=== PATIENT | female | born 2000 | race African-American/Black ===

== ENCOUNTER 2019-07-14 10:59 | Emergency (ER) | payer SELFPAY ==
[~2019-07-14] VITALS: Ht 152.4 cm; Wt 68.2 kg
[2019-07-14 11:24] VITALS: BP 110/62
[2019-07-14 12:06] LABS: URINE HCG NEGATIVE (NEG)
[2019-07-14 12:09] LABS: CLARITY,URINE CLOUDY (Clear); COLOR,URINE YELLOW (Yellow); GLUCOSE, URINE NEGATIVE (Neg); KETONES,URINE NEGATIVE (Neg); LEUKOCYTE ESTERASE ,URINE LARGE (Neg); NITRITES, URINE NEGATIVE (Neg); OCCULT BLOOD,URINE LARGE (Neg); PROTEIN,URINE 30 mg/dl (Neg)
[2019-07-14 12:11] LABS: UA COLLECTION TYPE CLN CATCH MIDSTREAM
[2019-07-14 12:17] LABS: WBC,URINE TNTC /HPF (0-4)
[2019-07-14 12:18] LABS: BACTERIA,URINE 2+ /HPF (Neg); MUCUS STRANDS MODERATE /LPF (Neg); SQUAMOUS EPITHELIAL CELL,UR MANY /LPF (FEW)
--- NOTE | 2019-07-14 12:23 | NUR ---
educated pt on how to do a clean catch for culture
[2019-07-14] MEDS ORDERED: CefTRIAXone 250MG IM Kit w/LIDOcaine IM ONE (12:45)
[2019-07-14] MEDS ORDERED: azithromycin 250mg tablet PO ONE (12:45)
[2019-07-14 12:47] LABS: CLARITY,URINE CLOUDY (Clear); COLOR,URINE YELLOW (Yellow); GLUCOSE, URINE NEGATIVE (Neg); KETONES,URINE NEGATIVE (Neg); LEUKOCYTE ESTERASE ,URINE LARGE (Neg); NITRITES, URINE NEGATIVE (Neg); OCCULT BLOOD,URINE LARGE (Neg); PROTEIN,URINE 30 mg/dl (Neg); UROBILINOGEN,URINE 0.2 E.U/dL (0.2-1.0)
[2019-07-14 12:48] LABS: UA COLLECTION TYPE CLN CATCH MIDSTREAM
[2019-07-14] MEDS ORDERED: CEPH250T PO (12:55)
[2019-07-14 12:59] LABS: SQUAMOUS EPITHELIAL CELL,UR FEW /LPF (FEW); WBC CLUMPS,URINE MANY /HPF (NEGATIVE)
[2019-07-14 13:00] LABS: BACTERIA,URINE 2+ /HPF (Neg); WBC,URINE TNTC /HPF (0-4)
== END 2019-07-14 13:48 | disposition home or self-care (01) ==
LOC: ER 11:00
DX: N39.0 Urinary tract infection, site not specified (principal); R30.0 Dysuria; R39.15 Urgency of urination; Z79.2 Long term (current) use of antibiotics
CPT/HCPCS: 36415; 81001; 81025; 87077; 87088; 87186; 87491; 87591; 96372; 99283; J0696

== ENCOUNTER 2020-09-24 15:57 | Emergency (ER) | payer MEDICAID, SELFPAY ==
[~2020-09-24] VITALS: Ht 160 cm; Wt 78.9 kg
[2020-09-24 16:12] VITALS: BP 102/84
[2020-09-24 18:44] LABS: URINE HCG NEGATIVE (NEG)
[2020-09-24 18:45] LABS: CLARITY,URINE SLIGHTLY CLOUDY (Clear); COLOR,URINE YELLOW (Yellow); GLUCOSE, URINE NEGATIVE (Neg); KETONES,URINE NEGATIVE (Neg); LEUKOCYTE ESTERASE ,URINE SMALL (Neg); NITRITES, URINE NEGATIVE (Neg); OCCULT BLOOD,URINE NEGATIVE (Neg); PROTEIN,URINE NEGATIVE (Neg); UA COLLECTION TYPE VOIDED; UROBILINOGEN,URINE 0.2 E.U/dL (0.2-1.0)
[2020-09-24 18:59] LABS: BACTERIA,URINE 2+ /HPF (Neg); MUCUS STRANDS NONE SEEN /LPF (Neg); RBC,URINE NONE SEEN /HPF (0-2); SQUAMOUS EPITHELIAL CELL,UR MANY /LPF (FEW); WBC,URINE 0-4 /HPF (0-4)
[2020-09-24] MEDS ORDERED: METR-159 PO (19:08)
[2020-09-24] MEDS ORDERED: DOXY100C43 PO (19:08)
[2020-09-24] MEDS ORDERED: CefTRIAXone 1000mg IM Kit (w/lidocaine diluent) IM ONE (19:10)
== END 2020-09-24 19:42 | disposition home or self-care (01) ==
LOC: ER 15:57
DX: N76.0 Acute vaginitis (principal); Z79.2 Long term (current) use of antibiotics; Z79.899 Other long term (current) drug therapy
CPT/HCPCS: 36415; 81001; 81025; 87491; 87591; 96372; 99283; J0696; Q0112

== ENCOUNTER 2021-12-25 18:28 | Emergency (ER) | payer MEDICAID ==
[~2021-12-25] VITALS: Ht 170.2 cm; Wt 88.3 kg
[2021-12-25 18:48] VITALS: BP 106/58
== END 2021-12-25 19:54 | disposition home or self-care (01) ==
LOC: ER 18:29
DX: S93.401A Sprain of unspecified ligament of right ankle, initial encounter (principal); M25.471 Effusion, right ankle; M25.571 Pain in right ankle and joints of right foot; X58.XXXA Exposure to other specified factors, initial encounter; Y93.89 Activity, other specified; Y92.89 Other specified places as the place of occurrence of the external cause; Y99.8 Other external cause status
CPT/HCPCS: 73610; 99283

== ENCOUNTER 2022-03-17 19:37 | Emergency (ER) | payer MEDICAID ==
[~2022-03-17] VITALS: Ht 172.7 cm; Wt 9.1 kg
[2022-03-17 19:43] VITALS: BP 109/65
[2022-03-17] MEDS ORDERED: IBUP-1986 PO (20:31)
[2022-03-17] MEDS ORDERED: ketorolac trometh inj. 60 MG/2 ML VIAL IM ONE (20:35)
== END 2022-03-17 21:03 | disposition home or self-care (01) ==
LOC: ER 19:38
DX: K08.89 Other specified disorders of teeth and supporting structures (principal)
CPT/HCPCS: 96372; 99283; J1885

== ENCOUNTER 2022-03-18 04:38 | Emergency (ER) | payer MEDICAID ==
[~2022-03-18] VITALS: Ht 172.7 cm; Wt 90.9 kg
[~2022-03-18 04:38] MED LIST: IBUP-1986 PO
[2022-03-18 04:40] VITALS: BP 124/83
== END 2022-03-18 08:00 | disposition left against medical advice (07) ==
LOC: ER 04:38
DX: K08.89 Other specified disorders of teeth and supporting structures (principal); Z53.21 Procedure and treatment not carried out due to patient leaving prior to being seen by health care provider

== ENCOUNTER 2022-10-06 13:06 | Emergency (ER) | payer MEDICAID ==
[~2022-10-06] VITALS: Ht 175.3 cm; Wt 100.0 kg
[2022-10-06 13:09] VITALS: BP 119/74; PULSE 88; RESP 18; TEMP 97.8; O2SAT 96
--- NOTE | 2022-10-06 15:29 | NUR ---
PA told the pt to return in 6 days for suture removal
== END 2022-10-06 15:30 | disposition home or self-care (01) ==
LOC: ER 13:06
DX: S81.011D Laceration without foreign body, right knee, subsequent encounter (principal); Z48.00 Encounter for change or removal of nonsurgical wound dressing; X58.XXXA Exposure to other specified factors, initial encounter
CPT/HCPCS: 99281